=== PATIENT | female | born 1950 | race Caucasian/White ===

== ENCOUNTER 2021-01-23 17:06 | Outpatient (CLI) | payer MEDICARE | END 2021-01-23 23:59 | disposition home or self-care (01) | LOC: LAB 17:06 | PROVIDERS: ATTEND Family Medicine | DX: R30.0 Dysuria (principal); J01.90 Acute sinusitis, unspecified; Z20.822 Contact with and (suspected) exposure to COVID-19 | CPT/HCPCS: 87086; U0004 ==

== ENCOUNTER 2021-05-12 17:37 | Outpatient (CLI) | payer MEDICARE ==
--- NOTE | 2021-05-13 08:22 | XRAY Report ---
PROCEDURE: Shoulder 2 View RT INDICATIONS: R SHOULDER PX TECHNIQUE: 2 views of the shoulder were acquired. COMPARISON: None. FINDINGS: BONES: No acute, displaced fracture. The joint spaces are maintained. SOFT TISSUES: Punctate calcific densities overlying the humeral head, compatible with rotator cuff te ndinopathy. IMPRESSION: 1.No acute osseous abnormality. 2.Rotator cuff calcific tendinopathy. Reviewed by: Luis Avalos MD on 05/13/2021 8:20 AM PDT Approved by: Luis Avalos MD on 05/13/2021 8:20 AM PDT Station ID: [id number]
== END 2021-05-12 23:59 | disposition home or self-care (01) ==
LOC: DI.N 17:37
PROVIDERS: ATTEND Family Medicine
DX: M65.811 Other synovitis and tenosynovitis, right shoulder (principal)

== ENCOUNTER 2022-11-25 14:33 | Outpatient (CLI) | payer MEDICARE ==
--- NOTE | 2022-12-02 10:01 | Mammography Report ---
BILATERAL DIGITAL SCREENING MAMMOGRAM 3D/2D: 11/25/2022 CLINICAL: Routine screening. No prior exams were available for comparison. Both breasts are heterogeneously dense, which may obscure small masses (category c / 51-75% glandular tissue). No significant masses, calcifications, or other findings are seen in either breast. IMPRESSION: NEGATIVE There is no mammographic evidence of malignancy. A 1 year screening mammogram is recommended. Based on the Tyrer Cuzick model (a risk assessment model) the patients lifetime risk is 7.6% and her 10 year risk is 4.8%. According to the ACR, ACS, and NCCN guidelines, an annual breast MRI exam manuelito g with mammogram is recommended if the patients lifetime risk is 20% or greater. This exam was interpreted at Station ID: [id number]. NOTE: For mammograms, a report in lay terms will be sent to the patient. Approximately 15% of breast malignancies will not be visualized mammographically. In the management of a palpable breast mass, a negative mammogram must not discourage biopsy of a clinically suspicious lesion. Electronically Signed By: Tabitha rosales/charles:12/02/2022 09:00:18 letter sent: No_Letter ACR BI-RADS Category 1: Negative 3341F PARENCHYMAL PATTERN: (D) - The breast(s) demonstrate(s) heterogeneously dense fibroglandular paul martinez. BI-RADS CATEGORY: (1) - 1 Mammogram [id number] 1 year screening LATERALITY: (B)
== END 2022-11-25 14:34 | disposition home or self-care (01) ==
LOC: DI.N 14:33
DX: Z12.31 Encounter for screening mammogram for malignant neoplasm of breast (principal); R92.333 Mammographic heterogeneous density, bilateral breasts

== ENCOUNTER 2023-10-19 08:00 | Outpatient (CLI) | payer MEDICARE | END 2023-10-19 23:59 | disposition home or self-care (01) | LOC: LAB.N 08:00 | PROVIDERS: ATTEND Physician Assistant Medical | DX: N39.0 Urinary tract infection, site not specified (principal) | CPT/HCPCS: 87086 ==

== ENCOUNTER 2023-10-27 12:36 | Outpatient (CLI) | payer MEDICARE ==
[2023-10-27 18:37] LABS: BASOPHILS # (AUTO) 0.2 10^3/uL (0.0-0.1); BASOPHILS % (AUTO) 3.7 %; EOSINOPHILS # (AUTO) 0.1 10^3/uL (0.0-0.7); EOSINOPHILS % (AUTO) 2.4 %; HCT - HEMATOCRIT 39.1 % (37.0-47.0); HGB - HEMOGLOBIN 12.4 g/dL (12.0-16.0); LYMPHOCYTES # (AUTO) 1.3 10^3/uL (1.5-3.5); LYMPHOCYTES % (AUTO) 24.2 %; MEAN CORPUSCULAR HEMOGLOBIN 32.1 pg (27.0-31.0); MEAN CORPUSCULAR HGB CONC 31.7 g/dL (32.0-36.0); MEAN CORPUSCULAR VOLUME 101.3 fL (81.0-99.0); MEAN PLATELET VOLUME 10.8 fL (7.9-10.8); MONOCYTES # (AUTO) 0.3 10^3/uL (0.0-1.0); MONOCYTES % (AUTO) 5.6 %; NEUTROPHILS # (AUTO) 3.5 10^3/uL (1.5-6.6); NEUTROPHILS % (AUTO) 64.1 %; PLT - PLATELET COUNT 245 10^3/uL (130-450); RED BLOOD COUNT 3.86 10^6/uL (4.20-5.40); RED CELL DISTRIBUTION WIDTH 13.5 % (12.0-15.0); WHITE BLOOD COUNT 5.4 x10^3/uL (4.8-10.8)
[2023-10-27 19:19] LABS: ALBUMIN 4.5 g/dL (3.2-5.5); BILIRUBIN,TOTAL 0.7 mg/dL (0.2-1.0); CALCIUM 9.5 mg/dL (8.5-10.3); CREATININE 0.5 mg/dL (0.6-1.3); POTASSIUM 3.9 mmol/L (3.5-4.5); TOTAL PROTEIN 6.8 g/dL (6.4-8.9)
== END 2023-10-27 12:37 | disposition home or self-care (01) ==
LOC: LAB.N 12:36
PROVIDERS: ATTEND Internal Medicine Rheumatology
DX: M06.09 Rheumatoid arthritis without rheumatoid factor, multiple sites (principal); Z79.899 Other long term (current) drug therapy
CPT/HCPCS: 36415; 80053; 85025